=== PATIENT | male | born 2000 | race Caucasian/White ===

== ENCOUNTER 2022-02-22 11:34 | Outpatient (REF) | payer OTHER, SELFPAY | END 2022-02-22 11:35 | disposition home or self-care (01) | LOC: HO.SH 11:34 | PROVIDERS: Visit Provider Nurse Practitioner Family | DX: Z01.118 Encounter for examination of ears and hearing with other abnormal findings (principal); H69.93 Unspecified Eustachian tube disorder, bilateral; H61.23 Impacted cerumen, bilateral | CPT/HCPCS: 92567; 92579 ==